=== PATIENT | male | born 1970 | race Caucasian/White ===

== ENCOUNTER 2017-04-13 00:11 | Emergency (ER) | payer BC ==
[~2017-04-13] VITALS: Ht 177.8 cm; Wt 129.3 kg
== END 2017-04-13 01:46 | disposition home or self-care (01) ==
LOC: ER 00:11
DX: S01.112A Laceration without foreign body of left eyelid and periocular area, initial encounter (principal); W01.198A Fall on same level from slipping, tripping and stumbling with subsequent striking against other object, initial encounter; Z87.891 Personal history of nicotine dependence
CPT/HCPCS: 12013; 99283

== ENCOUNTER 2020-11-27 07:21 | Inpatient (IN) | payer BC ==
[~2020-11-27] VITALS: Ht 177.8 cm; Wt 127.5 kg
[2020-11-27 07:58] LABS: BASOPHILS ABSOLUTE AUTO 0.01 K/mm3 (0.00-0.23); BASOPHILS PERCENT AUTO 0 % (0-2); EOSINOPHILS ABSOLUTE AUTO 0.01 K/mm3 (0.00-0.68); EOSINOPHILS PERCENT AUTO 0 % (0-6); Hematocrit 39.6 % (37.0-53.0); Hemoglobin 13.4 g/dL (13.5-17.5); Mean Corpuscular HGB 27.6 pg (26.0-34.0); Mean Corpuscular HGB Conc 33.8 g/dL (31.5-36.5); Mean Corpuscular Volume 82 fL (80-100); Mean Platelet Volume 10.2 fL (9.1-12.4); Platelet Count 181 K/mm3 (150-400); RDW Coefficient Variation 12.6 % (11.7-14.2); RDW Standard Deviation 37.8 fL (35.1-46.3); Red Blood Cell Count 4.86 M/mm3 (4.30-5.90); White Blood Cell Count 5.78 K/mm3 (4.00-11.30)
[2020-11-27 08:01] LABS: IMMATURE GRAN ABSOLUTE AUTO 0.04 K/mm3 (0.00-0.10); IMMATURE GRAN PERCENT AUTO 1 % (0-1); LYMPHOCYTES ABSOLUTE AUTO 0.67 K/mm3 (0.84-5.20); LYMPHOCYTES PERCENT AUTO 12 % (21-46); MONOCYTES ABSOLUTE AUTO 0.44 K/mm3 (0.16-1.47); MONOCYTES PERCENT AUTO 8 % (4-13); NEUTROPHILS ABSOLUTE AUTO 4.61 K/mm3 (1.96-9.15); NEUTROPHILS PERCENT AUTO 80 % (41-73)
[2020-11-27 08:21] LABS: BASOPHILS PERCENT MAN 0 % (0-2); EOSINOPHILS PERCENT MAN 0 % (0-6); LYMPHOCYTES ABSOLUTE MAN 0.63 K/mm3 (0.84-5.20); LYMPHOCYTES PERCENT MAN 11 % (21-46); MONOCYTES ABSOLUTE MAN 0.52 K/mm3 (0.16-1.47); MONOCYTES PERCENT MAN 9 % (4-13); NEUTROPHILS ABSOLUTE MAN 4.62 K/mm3 (1.96-9.15); SEG NEUTROPHILS PERCENT MAN 80 % (41-73); TOTAL CELLS COUNTED 100
[2020-11-27 08:24] LABS: Alanine Aminotransfer (ALT/SGP 71 U/L (12-78); Albumin, Blood 2.7 g/dL (3.4-5.0); Albumin/Globulin Ratio 0.6 (0.8-1.8); Alk Phos 85 U/L (50-136); Anion Gap 8 mmol/L (6-16); Aspartate Aminotrans (AST/SGOT 82 U/L (12-37); Bilirubin, Total 0.6 mg/dL (0.1-1.0); Blood Urea Nitrogen 11 mg/dL (8-24); Bun/Creatinine Ratio 14.4 (12.0-20.0); CO2, Blood 26 mmol/L (21-32); Calcium, Blood 7.8 mg/dL (8.5-10.1); Chloride, Blood 102 mmol/L (98-108); Creatinine, Blood 0.76 mg/dL (0.60-1.20); Ferritin, Serum 648 ng/mL (26-388); Globulin, Blood 4.4 g/dL (2.2-4.0); Glomerular Filtration Rate >60 (60-); Glucose, Blood 114 mg/dL (70-99); Lactate Dehydrogenase (Ld),Bld 588 U/L (100-240); Potassium, Blood 3.3 mmol/L (3.5-5.5); Sodium, Blood 136 mmol/L (136-145); Total Protein, Blood 7.1 g/dL (6.4-8.2)
--- NOTE | 2020-11-27 13:47 | NUR ---
Update 11/27/20: Pt. admitted with acute hypoxemic respiratory failure secondary to COVID pneumonia. Per chart notes, pt. currently on 15 LPM NRB SPO2 90%. Pt. has no previous hx. of respiratory problems per [facility] chart review. Plan to continue to follow patient's care and assist in discharge/planning care coordination as needed. Anticipated needs at time of discharge to include: O2 if indicated, Xarelto/Daniel samples, PCP hospital F/U visit within 7 days of discharge. I will contact patient's to provide updates tomorrow.
--- NOTE | 2020-11-27 16:23 | NUR ---
PT ARRIVED EARLIER TODAY AND SEEMS TO BE MAINTIANING ON 15L NOREBREATHER IN LOW 90s. PT IS AOX4 AND COOPERATIVE OF CARE AT THIS TIME. CALL LIGHT IS WITHIN REACH WILL CONTINUE TO MONITOR.
--- NOTE | 2020-11-28 06:36 | NUR ---
SHIFT SUMMARY PATIENT ALERT AND ORIENTED. NO ACUTE ISSUES NOTED OVERNIGHT. CONTINUES TO BE ON 15 LITERS O2 VIA NASAL CANULA. IV PATENT AND FLUSHED. BED IN LOWEST POSITION WITH WHEELS LOCKED. CALL LIGHT WITHIN REACH. REPORT GIVEN TO ONCOMING RN.
[2020-11-28 06:51] LABS: BASOPHILS ABSOLUTE AUTO 0.01 K/mm3 (0.00-0.23); BASOPHILS PERCENT AUTO 0 % (0-2); EOSINOPHILS PERCENT AUTO 0 % (0-6); Hematocrit 43.7 % (37.0-53.0); Hemoglobin 14.3 g/dL (13.5-17.5); Mean Corpuscular HGB 27.5 pg (26.0-34.0); Mean Corpuscular HGB Conc 32.7 g/dL (31.5-36.5); Mean Corpuscular Volume 84 fL (80-100); Mean Platelet Volume 10.9 fL (9.1-12.4); Platelet Count 224 K/mm3 (150-400); RDW Coefficient Variation 12.7 % (11.7-14.2); White Blood Cell Count 8.86 K/mm3 (4.00-11.30)
[2020-11-28 06:54] LABS: IMMATURE GRAN ABSOLUTE AUTO 0.11 K/mm3 (0.00-0.10); IMMATURE GRAN PERCENT AUTO 1 % (0-1); LYMPHOCYTES ABSOLUTE AUTO 1.06 K/mm3 (0.84-5.20); LYMPHOCYTES PERCENT AUTO 12 % (21-46); MONOCYTES ABSOLUTE AUTO 0.66 K/mm3 (0.16-1.47); MONOCYTES PERCENT AUTO 7 % (4-13); NEUTROPHILS ABSOLUTE AUTO 7.02 K/mm3 (1.96-9.15); NEUTROPHILS PERCENT AUTO 79 % (41-73)
[2020-11-28 07:14] LABS: Anion Gap 7 mmol/L (6-16); Blood Urea Nitrogen 16 mg/dL (8-24); Bun/Creatinine Ratio 20.8 (12.0-20.0); CO2, Blood 28 mmol/L (21-32); Calcium, Blood 8.4 mg/dL (8.5-10.1); Chloride, Blood 102 mmol/L (98-108); Creatinine, Blood 0.77 mg/dL (0.60-1.20); Glomerular Filtration Rate >60 (60-); Glucose, Blood 146 mg/dL (70-99); Potassium, Blood 3.8 mmol/L (3.5-5.5); Sodium, Blood 137 mmol/L (136-145)
--- NOTE | 2020-11-28 11:50 | NUR ---
Update 11/28/20: Pt. remains on 15 LPM NRB SPO2 90%. Plan to continue to follow patient's care and assist in discharge/planning care coordination as needed. Anticipated needs at time of discharge to include: O2 if indicated, Xarelto/Elironal samples, PCP hospital F/U visit within 7 days of discharge.
--- NOTE | 2020-11-28 12:24 | NUR ---
Pt. has potential to D/C over the weeked. Discussed D/C meds with Dr. Lombardo. Elquis 2.5mg tabs quantity 60 placed in lockbox outside of patient's room.
--- NOTE | 2020-11-28 18:27 | NUR ---
SHIFT SUMMARY PATIENT IS A/O AND CALLS APPROPRIATELY. PATIENT IS CURRENTLY ON 15 LITERS OF NONREBREATHER. INDEPENDENT TO BEDSIDE COMMODE, SATS DECREASE WITH ACTIVITY. PATIENT HAS BEEN COOPERATIVE WITH CARE. PATIENT HAS PATENT IV IN THE RIGHT FOREARM.
--- NOTE | 2020-11-29 06:38 | NUR ---
SHIFT SUMMARY PATIENT ALERT AND ORIENTED. NO ACUTE ISSUES NOTED OVERNIGHT.
[2020-11-29 06:41] LABS: Hematocrit 42.9 % (37.0-53.0); Hemoglobin 14.2 g/dL (13.5-17.5); Mean Corpuscular HGB 27.4 pg (26.0-34.0); Mean Corpuscular HGB Conc 33.1 g/dL (31.5-36.5); Mean Corpuscular Volume 83 fL (80-100); Mean Platelet Volume 10.9 fL (9.1-12.4); Platelet Count 230 K/mm3 (150-400); RDW Coefficient Variation 12.5 % (11.7-14.2); RDW Standard Deviation 38.5 fL (35.1-46.3); Red Blood Cell Count 5.19 M/mm3 (4.30-5.90); White Blood Cell Count 11.79 K/mm3 (4.00-11.30)
[2020-11-29 07:03] LABS: Anion Gap 6 mmol/L (6-16); Blood Urea Nitrogen 23 mg/dL (8-24); Bun/Creatinine Ratio 30.7 (12.0-20.0); CO2, Blood 28 mmol/L (21-32); Calcium, Blood 8.3 mg/dL (8.5-10.1); Chloride, Blood 104 mmol/L (98-108); Creatinine, Blood 0.75 mg/dL (0.60-1.20); Glomerular Filtration Rate >60 (60-); Glucose, Blood 140 mg/dL (70-99); Potassium, Blood 3.7 mmol/L (3.5-5.5); Sodium, Blood 138 mmol/L (136-145)
[2020-11-29 07:13] LABS: BAND PERCENT MAN 1 % (0-8); BASOPHILS PERCENT MAN 0 % (0-2); EOSINOPHILS PERCENT MAN 0 % (0-6); LYMPHOCYTES ABSOLUTE MAN 1.17 K/mm3 (0.84-5.20); LYMPHOCYTES PERCENT MAN 10 % (21-46); MONOCYTES ABSOLUTE MAN 0.47 K/mm3 (0.16-1.47); MONOCYTES PERCENT MAN 4 % (4-13); NEUTROPHILS ABSOLUTE MAN 10.13 K/mm3 (1.96-9.15); SEG NEUTROPHILS PERCENT MAN 85 % (41-73); TOTAL CELLS COUNTED 100
--- NOTE | 2020-11-29 19:16 | NUR ---
ALERT. ORIENTED. ON HIGH FLOW OXYGEN. INDEPENDENT IN ROOM. ABLE TO MAKE NEEDS KNOWN. REPORT TO NIGHT RN
[2020-11-30 06:21] LABS: Hemoglobin 14.3 g/dL (13.5-17.5); Mean Corpuscular HGB 27.8 pg (26.0-34.0); Mean Corpuscular HGB Conc 33.3 g/dL (31.5-36.5); Mean Corpuscular Volume 84 fL (80-100); Mean Platelet Volume 10.4 fL (9.1-12.4); Platelet Count 169 K/mm3 (150-400); RDW Coefficient Variation 12.6 % (11.7-14.2); RDW Standard Deviation 38.5 fL (35.1-46.3); Red Blood Cell Count 5.15 M/mm3 (4.30-5.90); White Blood Cell Count 11.95 K/mm3 (4.00-11.30)
[2020-11-30 06:52] LABS: Anion Gap 6 mmol/L (6-16); Blood Urea Nitrogen 22 mg/dL (8-24); Bun/Creatinine Ratio 31.5 (12.0-20.0); CO2, Blood 26 mmol/L (21-32); Calcium, Blood 7.6 mg/dL (8.5-10.1); Chloride, Blood 108 mmol/L (98-108); Glomerular Filtration Rate >60 (60-); Glucose, Blood 118 mg/dL (70-99); Potassium, Blood 3.8 mmol/L (3.5-5.5); Sodium, Blood 140 mmol/L (136-145)
[2020-11-30 06:53] LABS: BAND PERCENT MAN 2 % (0-8); BASOPHILS PERCENT MAN 0 % (0-2); EOSINOPHILS PERCENT MAN 0 % (0-6); LYMPHOCYTES ABSOLUTE MAN 1.43 K/mm3 (0.84-5.20); LYMPHOCYTES PERCENT MAN 12 % (21-46); MONOCYTES ABSOLUTE MAN 1.43 K/mm3 (0.16-1.47); MONOCYTES PERCENT MAN 12 % (4-13); NEUTROPHILS ABSOLUTE MAN 9.08 K/mm3 (1.96-9.15); SEG NEUTROPHILS PERCENT MAN 74 % (41-73); TOTAL CELLS COUNTED 100
--- NOTE | 2020-11-30 07:52 | NUR ---
SHIFT SUMMARY PT IS IN BED, R HAND IV, OXYGEN AT 15 LPM VIA OXIMIZER. LUNGS HAVE FAINT CRACKLES TO THE BASES. HE DENIES PAIN. HE IS ABLE TO CALL APPROPRIATELY, BED IN LOWEST POSITION.
--- NOTE | 2020-11-30 18:33 | NUR ---
50YR MALE ADMITED WITH HYPOXEMIA R/T COVID. THIS GENTLEMAN IS A&O, IND IN ROOM, LS DIMINISHED IN BASES. HE ON 15L O2 VIA HIGHFLOW N/C. PT DESIRED TO GO HOME AND STATES PT MAY BE ABLE TO GO HOME WHEN HE IS NOT REQUIRING MUCH O2. ATTEMPTED TO TITRATE O2 DOWN TODAY UNSUCCESSFULLY. PT DROPPED INTO 80'S WHEN O2 WAS DECREASED TO 12L. NO OTHER ACUTE CHANGES THIS SHIFT
[2020-12-01 06:05] LABS: BASOPHILS ABSOLUTE AUTO 0.06 K/mm3 (0.00-0.23); BASOPHILS PERCENT AUTO 1 % (0-2); EOSINOPHILS ABSOLUTE AUTO 0.02 K/mm3 (0.00-0.68); EOSINOPHILS PERCENT AUTO 0 % (0-6); Hematocrit 43.7 % (37.0-53.0); Hemoglobin 14.1 g/dL (13.5-17.5); IMMATURE GRAN ABSOLUTE AUTO 0.21 K/mm3 (0.00-0.10); IMMATURE GRAN PERCENT AUTO 2 % (0-1); LYMPHOCYTES ABSOLUTE AUTO 1.29 K/mm3 (0.84-5.20); LYMPHOCYTES PERCENT AUTO 12 % (21-46); MONOCYTES ABSOLUTE AUTO 0.68 K/mm3 (0.16-1.47); MONOCYTES PERCENT AUTO 6 % (4-13); Mean Corpuscular HGB 27.8 pg (26.0-34.0); Mean Corpuscular HGB Conc 32.3 g/dL (31.5-36.5); Mean Corpuscular Volume 86 fL (80-100); Mean Platelet Volume 10.9 fL (9.1-12.4); NEUTROPHILS ABSOLUTE AUTO 8.72 K/mm3 (1.96-9.15); NEUTROPHILS PERCENT AUTO 80 % (41-73); Platelet Count 159 K/mm3 (150-400); RDW Coefficient Variation 12.9 % (11.7-14.2); RDW Standard Deviation 39.7 fL (35.1-46.3); Red Blood Cell Count 5.07 M/mm3 (4.30-5.90); White Blood Cell Count 10.98 K/mm3 (4.00-11.30)
[2020-12-01 06:18] LABS: Anion Gap 6 mmol/L (6-16); Blood Urea Nitrogen 20 mg/dL (8-24); Bun/Creatinine Ratio 29.7 (12.0-20.0); CO2, Blood 25 mmol/L (21-32); Calcium, Blood 8.2 mg/dL (8.5-10.1); Chloride, Blood 106 mmol/L (98-108); Creatinine, Blood 0.67 mg/dL (0.60-1.20); Glomerular Filtration Rate >60 (60-); Glucose, Blood 124 mg/dL (70-99); Potassium, Blood 4.2 mmol/L (3.5-5.5); Sodium, Blood 137 mmol/L (136-145)
--- NOTE | 2020-12-01 07:58 | NUR ---
SHIFT SUMMARY PT ON 15 LPM VIA OXIMIZER. HE IS ON BEDREST, USING URINAL. R HAND IV. LUNG SOUNDS CLEAR IN ALL HERNANDEZ. HE IS ANXIOUS TO GO HOME.
--- NOTE | 2020-12-01 20:08 | NUR ---
SHIFT SUMMARY: NO ACUTE EVENTS TO REPORT THIS SHIFT. PT A&O; CALM AND COOPERATIVE WITH CARE. O2 @ 15L VIA OXYMIZER. IV STEROIDS & REMDESEVIR CONTINUING. REPORT GIVEN TO ONCOMING RN.
--- NOTE | 2020-12-02 04:12 | NUR ---
SHIFT SUMMARY ADMITTED FOR COVID+. FULL CODE. 15 LPM O2 VIA OXIMIZER. PLAN IS FOR DC WHEN O2 NEEDS ARE REDUCED. NO NEW CONCERNS THIS SHIFT.
[2020-12-02 05:44] LABS: BASOPHILS ABSOLUTE AUTO 0.05 K/mm3 (0.00-0.23); BASOPHILS PERCENT AUTO 0 % (0-2); EOSINOPHILS ABSOLUTE AUTO 0.05 K/mm3 (0.00-0.68); EOSINOPHILS PERCENT AUTO 0 % (0-6); Hematocrit 44.3 % (37.0-53.0); Hemoglobin 14.6 g/dL (13.5-17.5); IMMATURE GRAN ABSOLUTE AUTO 0.36 K/mm3 (0.00-0.10); IMMATURE GRAN PERCENT AUTO 3 % (0-1); LYMPHOCYTES ABSOLUTE AUTO 1.85 K/mm3 (0.84-5.20); LYMPHOCYTES PERCENT AUTO 14 % (21-46); MONOCYTES PERCENT AUTO 7 % (4-13); Mean Corpuscular HGB 27.5 pg (26.0-34.0); Mean Corpuscular Volume 84 fL (80-100); Mean Platelet Volume 10.5 fL (9.1-12.4); NEUTROPHILS ABSOLUTE AUTO 10.06 K/mm3 (1.96-9.15); NEUTROPHILS PERCENT AUTO 76 % (41-73); Platelet Count 189 K/mm3 (150-400); RDW Coefficient Variation 12.7 % (11.7-14.2); RDW Standard Deviation 38.5 fL (35.1-46.3); White Blood Cell Count 13.27 K/mm3 (4.00-11.30)
[2020-12-02 06:02] LABS: Anion Gap 5 mmol/L (6-16); Blood Urea Nitrogen 20 mg/dL (8-24); CO2, Blood 25 mmol/L (21-32); Calcium, Blood 7.6 mg/dL (8.5-10.1); Chloride, Blood 105 mmol/L (98-108); Creatinine, Blood 0.72 mg/dL (0.60-1.20); Glomerular Filtration Rate >60 (60-); Glucose, Blood 125 mg/dL (70-99); Potassium, Blood 4.5 mmol/L (3.5-5.5); Sodium, Blood 135 mmol/L (136-145)
--- NOTE | 2020-12-02 18:17 | NUR ---
SHIFT SUMMARY PATIENT ALERT AND ORIENTED. INDEPENDENT TO COMMODE. TITRATED HIGH FLOW TO 4 LITERS. PATIENT IS SATTING >90%, DOES DESAT WITH EXERTION. VITAL SIGNS STABLE NO ACUTE CHANGES THIS SHIFT. THE PATIENT MAY POSSIBLY GO HOME IN THE AM.
--- NOTE | 2020-12-03 04:03 | NUR ---
SHIFT SUMMARY ADMITTED FOR COVID+. FULL CODE. PLAN IS FOR DC HOME WHEN STABLE. ON 4 LPM O2 THIS SHIFT WITHOUT DESATURATING. IV STEROIDS ARE SCHEDULED. HE IS AMBULATING TO THE BATHROOM WITHOUT S/SX. NO NEW CONCERNS THIS SHIFT
[2020-12-03 06:08] LABS: BASOPHILS ABSOLUTE AUTO 0.05 K/mm3 (0.00-0.23); BASOPHILS PERCENT AUTO 0 % (0-2); EOSINOPHILS ABSOLUTE AUTO 0.06 K/mm3 (0.00-0.68); EOSINOPHILS PERCENT AUTO 0 % (0-6); Hematocrit 45.1 % (37.0-53.0); Hemoglobin 15.3 g/dL (13.5-17.5); IMMATURE GRAN ABSOLUTE AUTO 0.68 K/mm3 (0.00-0.10); IMMATURE GRAN PERCENT AUTO 5 % (0-1); LYMPHOCYTES ABSOLUTE AUTO 2.27 K/mm3 (0.84-5.20); LYMPHOCYTES PERCENT AUTO 16 % (21-46); MONOCYTES ABSOLUTE AUTO 0.89 K/mm3 (0.16-1.47); MONOCYTES PERCENT AUTO 6 % (4-13); Mean Corpuscular HGB Conc 33.9 g/dL (31.5-36.5); Mean Corpuscular Volume 82 fL (80-100); Mean Platelet Volume 11.1 fL (9.1-12.4); NEUTROPHILS ABSOLUTE AUTO 10.73 K/mm3 (1.96-9.15); NEUTROPHILS PERCENT AUTO 73 % (41-73); Platelet Count 227 K/mm3 (150-400); RDW Coefficient Variation 12.7 % (11.7-14.2); Red Blood Cell Count 5.47 M/mm3 (4.30-5.90); White Blood Cell Count 14.68 K/mm3 (4.00-11.30)
[2020-12-03 06:25] LABS: Anion Gap 6 mmol/L (6-16); Blood Urea Nitrogen 18 mg/dL (8-24); Bun/Creatinine Ratio 21.8 (12.0-20.0); CO2, Blood 27 mmol/L (21-32); Chloride, Blood 103 mmol/L (98-108); Creatinine, Blood 0.83 mg/dL (0.60-1.20); Glomerular Filtration Rate >60 (60-); Glucose, Blood 140 mg/dL (70-99); Potassium, Blood 4.2 mmol/L (3.5-5.5); Sodium, Blood 136 mmol/L (136-145)
[2020-12-03] MEDS ORDERED: ASPI81CH PO (10:11)
[2020-12-03] MEDS ORDERED: PRED20 PO (10:11)
[2020-12-03] MEDS ORDERED: THERA-D2000 UNIT PO (10:11)
[2020-12-03] MEDS ORDERED: ZINC220 PO (10:11)
--- NOTE | 2020-12-03 10:54 | NUR ---
HOME 02 EVAL PATIENT OXYGEN SATURATION 93% ON ROOM AIR AT REST. PATIENT OXYGEN SATURATION ON ROOM AIR WHILE SITTING ON SIDE OF BED 91% PATIENT OXYGEN SATURATION WHILE AMBULATING ON ROOM AIR 87% OXYGEN SATURATION ON 3L/NC WHILE AMBULATING 91-92%
--- NOTE | 2020-12-03 11:36 | NUR ---
UPDATE 12/02/20: PER CHART REVIEW AND DISCUSSION WITH DR. SANTIAGO, PT. APPROPRIATE FOR D/C HOME. REQUESTED HOME O2 EVAL. O2 ORDERS FAXED TO [facility]. SENT REQUEST FOR O2 TO BE DELIVERED TO HOSPITAL ROOM 328 SOON POSSIBLE FOR DISCHARGE. PT. SCHEDULED FOR HOSPITAL F/U APPT. ON 12/09/20 AT 4:20 PM VIA TELEHEALTH (EHSAN VERDUGO TO CALL PT.). PROVIDED D/C LETTER WITH APPT. DATE/TIME AND TELEHEALTH NOTED. PT. DISCHARGING ON ASA, NO NEED FOR SAMPLE MEDICATIONS. PT. GIVEN DIRECT TRIAGE LINE TO CALL WITH ANY URGENT (NON-EMERGENT) CONCERNS REGARDING CONDITION.
== END 2020-12-03 13:57 | disposition home or self-care (01) | DRG 177 ==
LOC: ER 07:21 → ERHOLD 10:37 → MEDS 12:35
PROVIDERS: Emergency Medicine; ADMIT Family Medicine
PROC: 3E0333Z Introduction of Anti-inflammatory into Peripheral Vein, Percutaneous Approach (ICD-10-PCS; principal; 2020-11-27)
PROC: 8E0ZXY6 Isolation (ICD-10-PCS; 2020-11-27)
PROC: XW033E5 Introduction of Remdesivir Anti-infective into Peripheral Vein, Percutaneous Approach, New Technology Group 5 (ICD-10-PCS; 2020-11-27)
DX: U07.1 COVID-19 (principal); J12.82 Pneumonia due to coronavirus disease 2019; J96.01 Acute respiratory failure with hypoxia; Z68.41 Body mass index [BMI] 40.0-44.9, adult; E66.09 Other obesity due to excess calories; E78.1 Pure hyperglyceridemia; F17.220 Nicotine dependence, chewing tobacco, uncomplicated; R73.03 Prediabetes
CPT/HCPCS: 36415; 71045; 80048; 80053; 82728; 82947; 83036; 83615; 85025; 85379; 85651; 86140; 94762; 96372-59; 96374; 99285-25; A9270; J1100; J1650; J2920; J7050